=== PATIENT | male | born 1950 | race Two or more races ===

== ENCOUNTER 2016-08-29 22:20 | Inpatient (IN) | payer MEDICARE, MEDICAID ==
[~2016-08-29] VITALS: Ht 167.6 cm; Wt 79.9 kg
[~2016-08-29 22:20] MED LIST: HYDROCHLOROTH12.5 M2 ORAL; METOCLOPRAMIDE H5 M1 ORAL; PLAVIX75 MG ORAL
[2016-08-29 22:42] VITALS: BP 155/77
[2016-08-29 22:43] LABS: BASOPHILS % (AUTO) 0.5 % (0.0-2.0); EOSINOPHILS % (AUTO) 1.1 % (0.0-3.0); MEAN CORPUSCULAR HEMOGLOBIN 29.8 PG (27.0-31.0); MEAN CORPUSCULAR HGB CONC 34.2 G/DL (32.0-36.0); MEAN CORPUSCULAR VOLUME 87 FL (80-99); MEAN PLATELET VOLUME 7.4 FL (6.5-10.1); MONOCYTES % (AUTO) 3.9 % (1.0-10.0); NEUTROPHILS % (AUTO) 79.5 % (45.0-75.0); PLATELET COUNT 257 K/UL (150-450); RED BLOOD COUNT 5.57 M/UL (4.70-6.10); RED CELL DISTRIBUTION WIDTH 12.5 % (11.6-14.8); WHITE BLOOD COUNT 15.2 K/UL (4.8-10.8)
[2016-08-29 22:58] LABS: TROPONIN I < 0.30 ng/mL (<=0.30)
[2016-08-29 23:01] LABS: ALANINE AMINOTRANSFERASE 21 U/L (3-41); ALBUMIN/GLOBULIN RATIO 1.4 (1.0-2.7); ANION GAP 19 (5-15); ASPARTATE AMINO TRANSFERASE 27 U/L (5-40); CALCIUM 9.1 mg/dL (8.6-10.2); CARBON DIOXIDE 24 mEQ/L (20-30); CHLORIDE 96 mEQ/L (98-107); CREATININE 1.2 mg/dL (0.7-1.2); GLOMERULAR FILTRATION RATE > 60 mL/min (>60); HEMOLYSIS 77; POTASSIUM 3.4 mEQ/L (3.4-4.9); SODIUM 139 mEQ/L (135-145); TOTAL PROTEIN 7.3 g/dL (6.6-8.7)
[2016-08-29] MEDS ORDERED: Nitroglycerin Subl 0.4mg tab (Bottle Of 25) SL ONE (23:01)
[2016-08-29 23:11] LABS: CKMB 3.9 ng/mL (< 6.7)
[2016-08-29] MEDS ORDERED: Nitroglycerin Subl 0.4mg tab (Bottle Of 25) SL PRN (23:15)
[2016-08-29 23:42] VITALS: BP 123/72
--- NOTE | 2016-08-29 23:45 | Emergency Room Report ---
History of Present Illness General Chief Complaint: Chest Pain Source: Patient, Family Member Present Illness HPI 66 YO M with history of previous cardiac stents from AMI, previous CVA, history of CHF, HTN, and ?DM presents with acute chest pain and "coughing up lots of phlegm" and SOB while at home. Patient had eaten dinner, thought about going for a walk and felt the left sided chest pressure. Denies fever/chills, recent cough, abd pain, nausea/vomiting. Follows at [facility]. EMS gave nitro spray and ASA Allergies: Coded Allergies: No Known Allergies (Unverified , 08/29/16) Patient History Past Medical History: DM, HTN, CT, CAD, CHF Past Surgical History: other - CAD stents Pertinent Family History: none Social History: Denies: alcohol use, drug use, smoking Immunizations: UTD Reviewed Nursing Documentation: PMH: Agreed, PSxH: Agreed Nursing Documentation-PMH Hx Hypertension: Yes Hx Diabetes: Yes Review of Systems All Other Systems: negative except mentioned in HPI Physical Exam Vital Signs Date Time Temp Pulse Resp B/P Pulse Ox O2 Delivery O2 Flow Rate FiO2 08/29/16 22:16 98.1 92 20 159/97 96 Nasal Cannula 4.0 08/29/16 23:08 30 Sp02 EP Interpretation: reviewed, abnormal General Appearance: normal inspection, well appearing, alert, GCS 15, non-toxic , moderate distress Head: normocephalic, atraumatic Eyes: bilateral eye EOMI, bilateral eye PERRL ENT: normal ENT inspection, hearing grossly normal, normal voice Neck: normal inspection, full range of motion, supple, no bony tend Respiratory: normal inspection, respiratory distress, accessory muscle use, rales, speaking full sentences Cardiovascular #1: no edema, tachycardia, irregularly irregular Gastrointestinal: normal inspection, normal bowel sounds, non tender, soft, no guarding, no hernia Genitourinary: no CVA tenderness Musculoskeletal: normal inspection, back normal, normal range of motion, Matt' s Sign negative Neurologic: normal inspection, alert, oriented x3, responsive, outcomes analyst III-XII nml as tested, motor strength/tone normal, speech normal Psychiatric: normal inspection, judgement/insight normal, mood/affect normal Skin: normal inspection, normal color, no rash Procedures Critical Care Time Critical Care Time CC time of 35 minutes for this 66 YO M who presents with chest pain, acute SOB PMHx includes CAD s/p stents, CHF, DM DDx includes CHF exacerbation, PNA, PTX, AMI Patient immediately placed on cardiac exercise specialist with rhytm strip and STAT EKG was obtained which showed atrial fib with HR 111, LVH, TWI in Leads 1, 2, 3, AVF and V6 (no previous to compare) Initial management indicated: CBC, CMP, troponin, BNP, CXR, Bipap, lasix, SL nitro Highly suspected: acute flash pulmonary edema Possible interventions - BIPAP,intubation, heparin, plavix CC time included frequent re-exams, interpretation of labs, imaging, adjustment of Abx, Nitro gtt, obtaining records from [facility], discussion with hospitalist, family member Critical care time of 35 minutes does not include reportable procedures. Medical Decision Making Medicare Attestation I Brett Vaca MD hereby attest that the medical record entry for date of service, 06/24/16 accurately reflects signatures/notations that I made in my capacity as MD when I treated/diagnosed the above listed Medicare beneficiary. I attest that this information is true, accurate and complete to the best of my knowledge. I understand that any falsification, omission, or concealment of material fact may subject me to administrative, civil, or criminal liability. This patient warrants hospital admission for extreme of age and has a condition that cannot be treated as outpatient. Diagnostic Impression: Primary Impression: Chest pain Qualified Codes: R07.9 - Chest pain, unspecified Additional Impressions: Acute pulmonary edema Leukocytosis Qualified Codes: D72.829 - Elevated white blood cell count, unspecified Atrial fibrillation Qualified Codes: I48.91 - Unspecified atrial fibrillation ER Course Labs: Lueks 15k. Troponin 0. H&H stable. BNP pending ECG is AFib. Patient and deny known history of Atrial fib. This might be new onset. 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 EKG Diagnostic Results Rate: other - Atrial fib ST Segments: other - TWI ASA given to the pt in ED: Yes PA Scribe Text Asa given by EMS Rhythm Strip Diag. Results EP Interpretation: yes Rate: 110 Chest X-Ray Diagnostic Results EP Interpretation: Yes Findings: other - =cardiomegaly, bilateral pulm congestion Number of Views: 1 Last Vital Signs Date Time Temp Pulse Resp B/P Pulse Ox O2 Delivery O2 Flow Rate FiO2 08/29/16 23:09 107 17 Bi-pap 30 08/29/16 23:08 99 08/29/16 23:07 142/103 08/29/16 22:42 4.0 08/29/16 22:42 98.1 Status: improved Disposition: ADMITTED INPATIENT Condition: Critical Referrals: NOT CHOSEN IPA/,REFERRING (PCP) BRETT VACA M.D. Aug 29, 2016 23:45
[2016-08-30] VITALS (9 sets, daily range): BP systolic 132–157; BP diastolic 75–95
[2016-08-30] MEDS ORDERED: Heparin 25,000u/D5W 500ml 500 ML IV SCH (00:45)
[2016-08-30] MEDS ORDERED: Heparin 5000 units/ml inj IV ONE (00:45)
[2016-08-30] MEDS ORDERED: Amiodarone 200mg tab ORAL SCH (09:30)
[2016-08-30] MEDS ORDERED: Captopril 25mg tab ORAL SCH (11:00)
[2016-08-30] MEDS ORDERED: NovoLOG Insulin Flexpen SUBQ SCH (11:30)
[2016-08-30] MEDS: NovoLOG Insulin Flexpen SUBQ SCH ×2 (16:30→21:00)
--- NOTE | 2016-08-30 17:37 | Cardiology Progress Note ---
Subjective Subjective the patient presented with paroxysmal a fib and pulmonary edema. Objective Last 24 Hour Vital Signs Date Time Temp Pulse Resp B/P Pulse Ox O2 Delivery O2 Flow Rate FiO2 08/30/16 10:33 157/93 08/30/16 08:00 78 08/30/16 07:40 98.2 77 14 157/95 97 Nasal Cannula 2.0 30 08/30/16 06:42 98.2 77 14 157/95 97 Nasal Cannula 2.0 08/30/16 05:42 98.1 75 22 150/89 99 Nasal Cannula 2.0 08/30/16 04:42 97.8 79 22 142/76 97 Nasal Cannula 2.0 08/30/16 03:42 98.1 78 21 138/79 97 Nasal Cannula 2.0 08/30/16 02:42 98.2 76 18 139/80 97 Nasal Cannula 2.0 08/30/16 01:42 98.0 87 21 140/76 100 Bi-pap 08/30/16 01:26 74 24 100 Facial 30 08/30/16 00:42 98.0 92 22 134/75 100 Bi-pap 08/29/16 23:42 98.0 90 24 123/72 100 Bi-pap 08/29/16 23:30 30 08/29/16 23:09 107 17 Bi-pap 30 08/29/16 23:08 107 17 99 Facial 30 08/29/16 23:07 142/103 08/29/16 22:42 92 20 Nasal Cannula 4.0 08/29/16 22:42 98.1 95 17 155/77 99 Nasal Cannula 4.0 08/29/16 22:16 98.1 92 20 159/97 96 Nasal Cannula 4.0 Intake and Output 08/29/16 08/30/16 19:00 07:00 Intake Total 150 ml Output Total 1300 ml Balance -1150 ml Intake Oral 0 ml IV Total 150 ml Output Urine Total 1300 ml Laboratory Tests Test 08/29/16 22:23 08/29/16 22:30 08/30/16 00:41 08/30/16 08:50 White Blood Count 15.2 K/UL (4.8-10.8) H Red Blood Count 5.57 M/UL (4.70-6.10) Hemoglobin 16.6 G/DL (14.2-18.0) Hematocrit 48.5 % (42.0-52.0) Mean Corpuscular Volume 87 FL (80-99) Mean Corpuscular Hemoglobin 29.8 PG (27.0-31.0) Mean Corpuscular Hemoglobin Concent 34.2 G/DL (32.0-36.0) Red Cell Distribution Width 12.5 % (11.6-14.8) Platelet Count 257 K/UL (150-450) Mean Platelet Volume 7.4 FL (6.5-10.1) Neutrophils (%) (Auto) 79.5 % (45.0-75.0) H Lymphocytes (%) (Auto) 15.0 % (20.0-45.0) L Monocytes (%) (Auto) 3.9 % (1.0-10.0) Eosinophils (%) (Auto) 1.1 % (0.0-3.0) Basophils (%) (Auto) 0.5 % (0.0-2.0) Sodium Level 139 mEQ/L (135-145) Potassium Level 3.4 mEQ/L (3.4-4.9) Chloride Level 96 mEQ/L (98-107) L Carbon Dioxide Level 24 mEQ/L (20-30) Anion Gap 19 (5-15) H Blood Urea Nitrogen 24 mg/dL (7-23) H Creatinine 1.2 mg/dL (0.7-1.2) Estimat Glomerular Filtration Rate > 60 mL/min (>60) Glucose Level 216 mg/dL (74-106) H Calcium Level 9.1 mg/dL (8.6-10.2) Total Bilirubin 0.8 mg/dL (0.0-1.2) Aspartate Amino Transf (AST/SGOT) 27 U/L (5-40) Alanine Aminotransferase (ALT/SGPT) 21 U/L (3-41) Alkaline Phosphatase 85 U/L (40-129) Total Creatine Kinase 74 U/L (38-174) Creatine Kinase MB 3.9 ng/mL (< 6.7) Creatine Kinase MB Relative Index 5.2 Troponin I < 0.30 ng/mL (<=0.30) Total Protein 7.3 g/dL (6.6-8.7) Albumin 4.3 g/dL (3.5-5.2) Globulin 3.0 g/dL Albumin/Globulin Ratio 1.4 (1.0-2.7) Pro-B-Type Natriuretic Peptide 1025 pg/mL (0-125) H Activated Partial Thromboplast Time 26 SEC (23-33) 45 SEC (23-33) H MANDEEP DALY Aug 30, 2016 17:37
[2016-08-30] MEDS ORDERED: Atorvastatin 20mg tab ORAL SCH (21:00)
[2016-08-30] MEDS: Atorvastatin 20mg tab ORAL SCH (21:08)
[2016-08-30] MEDS: Amiodarone 200mg tab ORAL SCH (21:09)
[2016-08-30] MEDS: Captopril 25mg tab ORAL SCH (21:09)
[2016-08-31] VITALS (7 sets, daily range): BP systolic 135–158; BP diastolic 79–94
[2016-08-31 05:36] LABS: BASOPHILS % (AUTO) 0.4 % (0.0-2.0); EOSINOPHILS % (AUTO) 0.8 % (0.0-3.0); LYMPHOCYTES % (AUTO) 26.4 % (20.0-45.0); MEAN CORPUSCULAR HEMOGLOBIN 29.3 PG (27.0-31.0); MEAN CORPUSCULAR HGB CONC 33.9 G/DL (32.0-36.0); MEAN CORPUSCULAR VOLUME 87 FL (80-99); MEAN PLATELET VOLUME 7.8 FL (6.5-10.1); MONOCYTES % (AUTO) 8.2 % (1.0-10.0); NEUTROPHILS % (AUTO) 64.3 % (45.0-75.0); PLATELET COUNT 240 K/UL (150-450); RED BLOOD COUNT 5.07 M/UL (4.70-6.10); RED CELL DISTRIBUTION WIDTH 12.5 % (11.6-14.8); WHITE BLOOD COUNT 9.7 K/UL (4.8-10.8)
[2016-08-31] MEDS: Captopril 25mg tab ORAL SCH ×3 (05:45→22:16)
[2016-08-31] MEDS: NovoLOG Insulin Flexpen SUBQ SCH ×4 (05:50→20:42)
[2016-08-31 06:06] LABS: MAGNESIUM 1.9 mg/dL (1.7-2.5); PHOSPHORUS 2.9 mg/dL (2.5-4.8)
[2016-08-31 06:07] LABS: CALCIUM 9.5 mg/dL (8.6-10.2); CREATININE 1.3 mg/dL (0.7-1.2); GLOMERULAR FILTRATION RATE 55.2 mL/min (>60); POTASSIUM 3.4 mEQ/L (3.4-4.9)
[2016-08-31] MEDS: Amiodarone 200mg tab ORAL SCH ×2 (08:57→17:45)
--- NOTE | 2016-08-31 16:12 | Cardiology Progress Note ---
Subjective Subjective the patient presented with paroxysmal a fib and pulmonary edema. [id number] Objective Last 24 Hour Vital Signs Date Time Temp Pulse Resp B/P Pulse Ox O2 Delivery O2 Flow Rate FiO2 08/31/16 13:25 156/79 08/31/16 12:00 97.2 80 20 156/79 98 Room Air 08/31/16 12:00 78 08/31/16 12:00 97.2 80 20 156/79 98 Room Air 08/31/16 08:00 65 08/31/16 08:00 97.2 71 21 141/92 98 Nasal Cannula 2.0 08/31/16 05:45 138/90 08/31/16 04:00 96.8 62 20 138/90 97 Nasal Cannula 2.0 78 08/31/16 04:00 66 08/31/16 00:00 97.2 72 20 138/88 97 Nasal Cannula 2.0 78 08/31/16 00:00 70 08/30/16 21:09 132/84 08/30/16 20:54 60 08/30/16 20:00 98.1 79 20 132/84 97 Nasal Cannula 2.0 78 08/30/16 20:00 60 Intake and Output 08/30/16 08/31/16 19:00 07:00 Intake Total 200 ml Output Total 450 ml 1275 ml Balance -250 ml -1275 ml Intake Oral 200 ml Output Urine Total 450 ml 1275 ml # Voids 4 3 Laboratory Tests Test 08/31/16 03:25 White Blood Count 9.7 K/UL (4.8-10.8) Red Blood Count 5.07 M/UL (4.70-6.10) Hemoglobin 14.9 G/DL (14.2-18.0) Hematocrit 43.9 % (42.0-52.0) Mean Corpuscular Volume 87 FL (80-99) Mean Corpuscular Hemoglobin 29.3 PG (27.0-31.0) Mean Corpuscular Hemoglobin Concent 33.9 G/DL (32.0-36.0) Red Cell Distribution Width 12.5 % (11.6-14.8) Platelet Count 240 K/UL (150-450) Mean Platelet Volume 7.8 FL (6.5-10.1) Neutrophils (%) (Auto) 64.3 % (45.0-75.0) Lymphocytes (%) (Auto) 26.4 % (20.0-45.0) Monocytes (%) (Auto) 8.2 % (1.0-10.0) Eosinophils (%) (Auto) 0.8 % (0.0-3.0) Basophils (%) (Auto) 0.4 % (0.0-2.0) Sodium Level 143 mEQ/L (135-145) Potassium Level 3.4 mEQ/L (3.4-4.9) Chloride Level 99 mEQ/L (98-107) Carbon Dioxide Level 28 mEQ/L (20-30) Anion Gap 16 (5-15) H Blood Urea Nitrogen 18 mg/dL (7-23) Creatinine 1.3 mg/dL (0.7-1.2) H Estimat Glomerular Filtration Rate 55.2 mL/min (>60) Glucose Level 111 mg/dL (74-106) #H Calcium Level 9.5 mg/dL (8.6-10.2) Phosphorus Level 2.9 mg/dL (2.5-4.8) Magnesium Level 1.9 mg/dL (1.7-2.5) MANDEEP DALY Aug 31, 2016 16:12
--- NOTE | 2016-08-31 16:16 | Cardiology Progress Note ---
Assessment/Plan Assessment/Plan paroxysmal a fib/flutter, started today in the afternoon will increase dose of amiodarone, add b-blockers and replacem Mg and K repeat troponin 2D echo f/u labs Subjective Subjective was in sinus rhythm this morning and now is back to a fib/flutter mild dyspnea Objective Last 24 Hour Vital Signs Date Time Temp Pulse Resp B/P Pulse Ox O2 Delivery O2 Flow Rate FiO2 08/31/16 13:25 156/79 08/31/16 12:00 97.2 80 20 156/79 98 Room Air 08/31/16 12:00 78 08/31/16 12:00 97.2 80 20 156/79 98 Room Air 08/31/16 08:00 65 08/31/16 08:00 97.2 71 21 141/92 98 Nasal Cannula 2.0 08/31/16 05:45 138/90 08/31/16 04:00 96.8 62 20 138/90 97 Nasal Cannula 2.0 78 08/31/16 04:00 66 08/31/16 00:00 97.2 72 20 138/88 97 Nasal Cannula 2.0 78 08/31/16 00:00 70 08/30/16 21:09 132/84 08/30/16 20:54 60 08/30/16 20:00 98.1 79 20 132/84 97 Nasal Cannula 2.0 78 08/30/16 20:00 60 General Appearance: mild distress EENT: PERRL/EOMI, normal ENT inspection Neck: JVD Rhythm: Afib Cardiovascular: tachycardia, arrhythmia Respiratory/Chest: rhonchi - bilaterally Abdomen: soft Extremities: trace edema Intake and Output 08/30/16 08/31/16 19:00 07:00 Intake Total 200 ml Output Total 450 ml 1275 ml Balance -250 ml -1275 ml Intake Oral 200 ml Output Urine Total 450 ml 1275 ml # Voids 4 3 Laboratory Tests Test 08/31/16 03:25 White Blood Count 9.7 K/UL (4.8-10.8) Red Blood Count 5.07 M/UL (4.70-6.10) Hemoglobin 14.9 G/DL (14.2-18.0) Hematocrit 43.9 % (42.0-52.0) Mean Corpuscular Volume 87 FL (80-99) Mean Corpuscular Hemoglobin 29.3 PG (27.0-31.0) Mean Corpuscular Hemoglobin Concent 33.9 G/DL (32.0-36.0) Red Cell Distribution Width 12.5 % (11.6-14.8) Platelet Count 240 K/UL (150-450) Mean Platelet Volume 7.8 FL (6.5-10.1) Neutrophils (%) (Auto) 64.3 % (45.0-75.0) Lymphocytes (%) (Auto) 26.4 % (20.0-45.0) Monocytes (%) (Auto) 8.2 % (1.0-10.0) Eosinophils (%) (Auto) 0.8 % (0.0-3.0) Basophils (%) (Auto) 0.4 % (0.0-2.0) Sodium Level 143 mEQ/L (135-145) Potassium Level 3.4 mEQ/L (3.4-4.9) Chloride Level 99 mEQ/L (98-107) Carbon Dioxide Level 28 mEQ/L (20-30) Anion Gap 16 (5-15) H Blood Urea Nitrogen 18 mg/dL (7-23) Creatinine 1.3 mg/dL (0.7-1.2) H Estimat Glomerular Filtration Rate 55.2 mL/min (>60) Glucose Level 111 mg/dL (74-106) #H Calcium Level 9.5 mg/dL (8.6-10.2) Phosphorus Level 2.9 mg/dL (2.5-4.8) Magnesium Level 1.9 mg/dL (1.7-2.5) MANDEEP DALY Aug 31, 2016 16:16
[2016-08-31] MEDS: Metoprolol 25mg tab ORAL SCH (17:45)
[2016-08-31 18:00] LABS: CALCIUM 9.7 mg/dL (8.6-10.2); CREATININE 1.3 mg/dL (0.7-1.2); GLOMERULAR FILTRATION RATE 55.2 mL/min (>60); POTASSIUM 3.7 mEQ/L (3.4-4.9)
[2016-08-31 18:09] LABS: TROPONIN I 3.19 ng/mL (<=0.30)
[2016-08-31] MEDS: Atorvastatin 20mg tab ORAL SCH (20:43)
--- NOTE | 2016-08-31 23:29 | History and Physical Report ---
DATE OF ADMISSION: 08/29/2016 DATE OF EVALUATION: 08/30/2016. IDENTIFICATION: This is a 66-year-old male. REASON FOR EVALUATION: Congestive heart failure and atrial fibrillation. HISTORY OF PRESENT ILLNESS: The patient was brought by ambulance because of pulmonary edema. He was short of breath. He could not expectorate his sputum. He was in atrial fibrillation. He was diuresed and admitted to intensive care unit. He is too short of breath and orthopnea is better. There is no wheezing and he conserved with sinus treatment when I see him. PAST MEDICAL HISTORY: Significant for myocardial infarction in 2011. Previously to that he had a stent placed in LAD and RCA and then he was found in 2011 that his RCA is totally occluded. His troponin was up to 130. He did not have any intervention. He also has history of diabetes. There is no history of atrial fibrillation and history of benign prostatic hypertrophy. HABITS: Remote history of smoking. No alcohol or drug abuse. SOCIAL HISTORY: He lives at home with his . REVIEW OF SYSTEMS: No fever, no chills. Substernal discomfort mild, but not radiating, and now feeling better. PHYSICAL EXAMINATION: VITAL SIGNS: Blood pressure 140/92, heart rate is 70 to 80s and regular. Temperature is normal. Oxygen saturation on 2 liters of oxygen 98%. HEENT: PERRLA. EOMI. NECK: Supple. Jugular pressure is elevated up to 12 centimeters, carotid upstroke is preserved. There is no bruit. LUNGS: He has scattered rales bilaterally. HEART: Regular with distant S1. Positive S3. ABDOMEN: Soft. Slightly distended. No rebound. No guarding. Bowel sounds are present. EXTREMITIES: Lower extremities, no edema. NEUROLOGIC: Neurologically, he appears to be intact. LABORATORY AND DIAGNOSTIC DATA: His EKG shows atrial fibrillation with left ventricular hypertrophy and Q-waves in V3 and V4 and 3 and aVL. Chest x-ray congestive heart failure. His laboratories noted potassium was 2.4, glucose 216, troponin normal. BNP level 1025. White count 15.2, hemoglobin is 16, and platelets 257,000. IMPRESSION AND RECOMMENDATION: The patient is in congestive heart failure and paroxysmal atrial fibrillation. He previously had ejection fraction on 42% at [facility] in 2011. He underwent coronary angiogram and he had echo done, and I reviewed that records. We are going to control his blood pressure. We are going to give him antiarrhythmic drug, amiodarone, try to keep him in sinus rhythm because he was in atrial fibrillation for a short period. He probably is not going to be anticoagulated. Will are going to continue Plavix, going to give him diuretics, and keep checking troponin. We are going to check his 2D echo. This is intensive care unit level of care. 1 hour spent evaluating the patient, discussion with his family and discussing the case with the nursing staff. Nilda Colmenares M.D. DR: ROSELYN JOB#: [id number] CC: CRISTHIAN
[2016-09-01] VITALS: BP 132/80
[2016-09-01 04:00] VITALS: BP 151/93
[2016-09-01] MEDS: Captopril 25mg tab ORAL SCH ×2 (06:29→13:37)
[2016-09-01] MEDS: NovoLOG Insulin Flexpen SUBQ SCH ×2 (06:30→11:32)
[2016-09-01 06:31] LABS: CALCIUM 9.5 mg/dL (8.6-10.2); CREATININE 1.4 mg/dL (0.7-1.2); GLOMERULAR FILTRATION RATE 50.7 mL/min (>60); POTASSIUM 3.4 mEQ/L (3.4-4.9)
[2016-09-01 08:00] VITALS: BP 145/88
[2016-09-01] MEDS: Amiodarone 200mg tab ORAL SCH ×2 (08:54→13:37)
[2016-09-01] MEDS: Metoprolol 25mg tab ORAL SCH (08:58)
[2016-09-01 12:00] VITALS: BP 147/92
[2016-09-01 13:37] VITALS: BP 147/92
--- NOTE | 2016-09-01 15:16 | Cardiology Progress Note ---
Assessment/Plan Assessment/Plan paroxysmal a fib/flutter, started today in the afternoon will increase dose of amiodarone, add b-blockers and replacem Mg and K 2D echo reviewed f/u labs troponin 3.0 CHF acute systolic acute [place] the patient was recommended to be transferred to [facility] for cardiac cath add aspirin Subjective Subjective feels better, has less dyspnea, denies chest pain Objective Last 24 Hour Vital Signs Date Time Temp Pulse Resp B/P Pulse Ox O2 Delivery O2 Flow Rate FiO2 09/01/16 13:37 147/92 09/01/16 12:00 96.9 65 20 147/92 100 Nasal Cannula 2.0 09/01/16 12:00 56 09/01/16 08:58 62 145/88 09/01/16 08:00 54 09/01/16 08:00 96.8 62 21 145/88 96 Nasal Cannula 2.0 09/01/16 06:29 151/93 09/01/16 04:00 59 09/01/16 04:00 97.2 65 18 151/93 98 Nasal Cannula 3.0 09/01/16 00:00 52 09/01/16 00:00 98.0 57 20 132/80 100 Nasal Cannula 3.0 08/31/16 22:16 135/79 08/31/16 21:00 78 20 135/79 99 Nasal Cannula 2.0 08/31/16 20:00 98.1 77 20 142/86 99 Nasal Cannula 3.0 08/31/16 20:00 76 08/31/16 17:45 121 158/94 08/31/16 16:30 121 08/31/16 16:00 98.1 130 18 158/94 98 Room Air General Appearance: alert EENT: PERRL/EOMI Neck: JVD Rhythm: NSR Cardiovascular: systolic murmur Respiratory/Chest: crackles/rales Abdomen: non tender, decreased bowel sounds Extremities: no swelling Intake and Output 08/31/16 09/01/16 18:59 06:59 Intake Total 400 ml 300 ml Output Total 600 ml 700 ml Balance -200 ml -400 ml Intake Oral 300 ml IV Total 100 ml 100 ml Other 200 ml Output Urine Total 600 ml 700 ml # Voids 1 # Bowel Movements 1 Laboratory Tests Test 08/31/16 17:35 09/01/16 03:25 Sodium Level 142 mEQ/L (135-145) 143 mEQ/L (135-145) Potassium Level 3.7 mEQ/L (3.4-4.9) 3.4 mEQ/L (3.4-4.9) Chloride Level 97 mEQ/L (98-107) L 98 mEQ/L (98-107) Carbon Dioxide Level 29 mEQ/L (20-30) 31 mEQ/L (20-30) H Anion Gap 16 (5-15) H 14 (5-15) Blood Urea Nitrogen 22 mg/dL (7-23) 25 mg/dL (7-23) H Creatinine 1.3 mg/dL (0.7-1.2) H 1.4 mg/dL (0.7-1.2) H Estimat Glomerular Filtration Rate 55.2 mL/min (>60) 50.7 mL/min (>60) Glucose Level 140 mg/dL (74-106) H 116 mg/dL (74-106) H Calcium Level 9.7 mg/dL (8.6-10.2) 9.5 mg/dL (8.6-10.2) Troponin I 3.19 ng/mL (<=0.30) *MANDEEP LOCK Sep 01, 2016 15:16
[2016-09-01] MEDS ORDERED: Aspirin Baby 81mg NG SCH (16:00)
[2016-09-01] MEDS ORDERED: Tubing IV Secondary IV ONE (16:16)
[2016-09-01] MEDS ORDERED: NS 275ml ONE (16:16)
--- NOTE | 2016-09-01 16:58 | Cardiology Progress Note ---
Assessment/Plan Assessment/Plan paroxysmal a fib/flutter, started today in the afternoon will increase dose of amiodarone, add b-blockers and replacem Mg and K 2D echo reviewed f/u labs troponin 3.0 CHF acute systolic acute [place] the patient was recommended to be transferred to [facility] for cardiac cath add aspirin Subjective Subjective [id number] Objective Last 24 Hour Vital Signs Date Time Temp Pulse Resp B/P Pulse Ox O2 Delivery O2 Flow Rate FiO2 09/01/16 13:37 147/92 09/01/16 12:00 96.9 65 20 147/92 100 Nasal Cannula 2.0 09/01/16 12:00 56 09/01/16 08:58 62 145/88 09/01/16 08:00 54 09/01/16 08:00 96.8 62 21 145/88 96 Nasal Cannula 2.0 09/01/16 06:29 151/93 09/01/16 04:00 59 09/01/16 04:00 97.2 65 18 151/93 98 Nasal Cannula 3.0 09/01/16 00:00 52 09/01/16 00:00 98.0 57 20 132/80 100 Nasal Cannula 3.0 08/31/16 22:16 135/79 08/31/16 21:00 78 20 135/79 99 Nasal Cannula 2.0 08/31/16 20:00 98.1 77 20 142/86 99 Nasal Cannula 3.0 08/31/16 20:00 76 08/31/16 17:45 121 158/94 Intake and Output 08/31/16 09/01/16 19:00 07:00 Intake Total 400 ml 300 ml Output Total 600 ml 700 ml Balance -200 ml -400 ml Intake Oral 300 ml IV Total 100 ml 100 ml Other 200 ml Output Urine Total 600 ml 700 ml # Voids 1 # Bowel Movements 1 Laboratory Tests Test 08/31/16 17:35 09/01/16 03:25 Sodium Level 142 mEQ/L (135-145) 143 mEQ/L (135-145) Potassium Level 3.7 mEQ/L (3.4-4.9) 3.4 mEQ/L (3.4-4.9) Chloride Level 97 mEQ/L (98-107) L 98 mEQ/L (98-107) Carbon Dioxide Level 29 mEQ/L (20-30) 31 mEQ/L (20-30) H Anion Gap 16 (5-15) H 14 (5-15) Blood Urea Nitrogen 22 mg/dL (7-23) 25 mg/dL (7-23) H Creatinine 1.3 mg/dL (0.7-1.2) H 1.4 mg/dL (0.7-1.2) H Estimat Glomerular Filtration Rate 55.2 mL/min (>60) 50.7 mL/min (>60) Glucose Level 140 mg/dL (74-106) H 116 mg/dL (74-106) H Calcium Level 9.7 mg/dL (8.6-10.2) 9.5 mg/dL (8.6-10.2) Troponin I 3.19 ng/mL (<=0.30) *MANDEEP LOCK Sep 01, 2016 16:58
--- NOTE | 2016-09-01 20:52 | Cardiology Report ---
APPROVED REPORT EXAM: Two-dimensional and M-mode echocardiogram with Doppler and color Doppler. INDICATION Atrial Fibrillation M-Mode DIMENSIONS IVSd1.2 (0.7-1.1cm)Left Atrium (MM)4.9 (1.6-4.0cm) LVDd5.7 (3.5-5.6cm)Aortic Root2.7 (2.0-3.7cm) PWd1.1 (0.7-1.1cm)Aortic Cusp Exc.1.5 (1.5-2.0cm) LVDs5.1 (2.5-4.0cm) PWs1.0 cm Technically difficult study due to poor acoustic windows. Mild left ventricular enlargement. Akinetic septum apex adn inferiro wll better motion is noted in lateral and proximal to mid anterior hicks and proximal anterior septum Left ventricular ejection fraction estimated to be 30-35%. Mild left ventricular hypertrophy. Small posterior pericardial effusion. Right cardiac chamber sizes are within normal limits. Moderate left atrial enlargement by 2D. Focal aortic valve sclerosis with adequate cusp excursion Thickened mitral valve leaflets with normal excursion. Mild mitral annulus and aortic root calcification. Pulmonic valve not well visualized. Normal tricuspid valve structure. IVC is not obtainable. A color flow and spectral Doppler study was performed and revealed: No aortic regurgitation. Moderate mitral regurgitation. Left ventricular diastolic dysfunction grade 1. No tricuspid regurgitation. Pulmonic regurgitation present.
--- NOTE | 2016-09-01 23:09 | Discharge Summary ---
DATE OF ADMISSION: 08/29/2016 DATE OF DISCHARGE: 09/01/2016 The patient is a 66-year-old gentleman. DIAGNOSES UPON DISCHARGE: 1. Pulmonary edema. 2. Paroxysmal atrial fibrillation. 3. Ischemic cardiomyopathy. 4. History of myocardial infarction. 5. Coronary artery disease. 6. Diabetes mellitus. 7. Hyperlipidemia. CONDITION: Guarded. DESTINATION: The patient left AMA. MEDICATIONS: Please see discharge medication list. The patient said that he is going to go to see his primary doctor for prescriptions. He did not want to wait for any prescriptions. DIET: Diabetic. FOLLOWUP: Followup with primary care physician. BRIEF HOSPITAL SUMMARY: This is a 66-year-old gentleman, who came in with paroxysmal atrial fibrillation and pulmonary edema. He was diuresed. He was started on amiodarone. He was on Plavix. He was not started on anticoagulation because his episode lasted less than 24 hours. He had another episode of short lasting the next day and then went back to sinus rhythm. His troponin was 3. He was diagnosed with acute non-ST elevation myocardial infarction and was recommended cardiac catheterization. We plan to transfer him to another hospital for coronary angiogram possible coronary vascularization, however, the patient declined further care and he left the hospital against medical advice. Nilda Colmenares M.D. DR: SHAN JOB#: [id number] CC:
--- NOTE | 2016-09-10 14:09 | Diagnostic Imaging Report ---
Indication: Chest pain Technique: One view of the chest Comparison: none Findings: Heart is borderline enlarged. There is some atelectasis at the right lung base. Remainder of the lungs and pleural spaces are clear Impression: No acute process Borderline cardiomegaly
== END 2016-09-01 16:17 | disposition short-term general hospital (02) | DRG 280 ==
LOC: EDBD 22:20 → EMR 22:47 → EDBEDREQSVC 23:03 → ICU 23:05 → EDBEDREQ 08-30 05:34 → ICU 08-30 06:34 → 2W 08-30 15:21
DX: I48.0 Paroxysmal atrial fibrillation (principal); I21.4 Non-ST elevation (NSTEMI) myocardial infarction; I50.21 Acute systolic (congestive) heart failure; I11.0 Hypertensive heart disease with heart failure; I48.92 Unspecified atrial flutter; I25.2 Old myocardial infarction; E11.9 Type 2 diabetes mellitus without complications; I25.10 Atherosclerotic heart disease of native coronary artery without angina pectoris; I25.5 Ischemic cardiomyopathy; E78.5 Hyperlipidemia, unspecified; Z98.61 Coronary angioplasty status; Z79.01 Long term (current) use of anticoagulants; Z86.73 Personal history of transient ischemic attack (TIA), and cerebral infarction without residual deficits
CPT/HCPCS: 36415; 71010; 80048; 80053; 82550; 82553; 82962; 83735; 83880; 84100; 84484; 85025; 85730; 93005; 93306; 94664; J1815; J8499